=== PATIENT | male | born 1990 | race African-American/Black ===

== ENCOUNTER 2023-05-13 10:21 | Emergency (ER) | payer OTHER ==
[~2023-05-13] VITALS: Ht 180.3 cm; Wt 94.1 kg
[2023-05-13 13:35] VITALS: BP 136/90; TEMP 98.5; O2SAT 99
[2023-05-13] MEDS ORDERED: KETOROLAC 60MG 2ML VIAL IM ONE (14:25)
== END 2023-05-13 16:05 | disposition home or self-care (01) ==
LOC: M ED 12:01
DX: M54.50 Low back pain, unspecified (principal)
CPT/HCPCS: 72131; 96372; 99283; J1885

== ENCOUNTER 2023-11-15 22:41 | Emergency (ER) | payer OTHER ==
[~2023-11-15] VITALS: Ht 180.3 cm; Wt 98.2 kg
[2023-11-15 22:41] VITALS: BP 144/84; TEMP 97; O2SAT 99
[2023-11-15] MEDS ORDERED: CYCL-707 PO (22:53)
[2023-11-15] MEDS ORDERED: NAPR-885 PO (22:53)
== END 2023-11-15 23:52 | disposition left against medical advice (07) ==
LOC: M ED 22:41
DX: Z53.21 Procedure and treatment not carried out due to patient leaving prior to being seen by health care provider (principal)